=== PATIENT | female | born 1935 | race Caucasian/White ===

== ENCOUNTER 2016-11-11 18:54 | Emergency (ER) | payer MEDICARE ==
--- NOTE | ~2016-11-11 | CR72 ---
[facility] A Service of [facility] RADIOLOGY TEXT RESULTS PATIENT: CARISSA RINCON LOCATION: SED : 36 UNIT #: [id number] AGE: [address]: Arpit Hartman MD SEX: F ORDER DR: [id number] [address] [address] [id number] MR#: [id number] Acc #: [id number] NAME: CARISSA RINCON : 1935 SEX: F STUDY DATE/TIME: 11/11/2016 19:57 UNIT: SED ROOM: STUDY DESCRIPTION: CR Chest Single View Portable Attending Physician: Arpit Hartman M.D. Ordering Physician: Arpit Hartman M.D. Primary Care Physician: Agustin Hauser M.D. MEDICAL IMAGING REPORT This report is preliminary unless electronic signature is present. EXAM Chest, portable, 11/11/2016, 1957 hours. CLINICAL HISTORY 81-year-old woman complaining of chest pain, upper abdominal pain with nausea and shortness of air beginning tonight. History of emphysema. COMPARISON 03/25/2014 FINDINGS Upright portable chest demonstrates moderate cardiomegaly appearing increased from prior study. Aortic contours are stable. There is underlying diffuse emphysematous change with patchy increased densities in the left upper lung and mild diffuse interstitial prominence also likely present on 03/25/2014. No effusions are seen. IMPRESSION 1. Moderate enlargement of the cardiac silhouette appearing slightly increased from 03/25/2014. This could be due to cardiomegaly or pericardial fluid. 2. The patient has emphysematous change with some coarse interstitial and reticular changes similar to 03/25/2014. There is vague patchy density in the left upper lung, which appears to be new and could represent pneumonia, less likely asymmetric edema. No effusions are seen. Dictated by... Petra Corona M.D. THIS IS AN ELECTRONICALLY VERIFIED REPORT Petra Corona M.D. at 11/12/2016 6:41 PM [facility] A Service of [facility] RADIOLOGY TEXT RESULTS PATIENT: CARISSA RINCON LOCATION: SED : 36 UNIT #: [id number] AGE: [address]: Arpit Hartman MD SEX: F ORDER DR: ANIKET/desiree TD: 11/12/2016 10:31 JOB #: [id number] MEDICAL IMAGING REPORT Page 1 of 1
--- NOTE | ~2016-11-11 | EKG ---
PATIENT: CARISSA RINCON UNIT #: [id number] Ventricular Rate: 88 BPM Atrial Rate: 88 BPM P-R Interval: 172 ms QRS Duration: 94 ms Q-T Interval: 352 ms QTC Calculation(Bezet): 425 ms P [place]: 92 degrees Calculated R [place]: 88 degrees Calculated T [place]: 115 degrees Diagnosis Line: Sinus rhythm with occasional Premature ventricular Diagnosis Line: complexes and Premature atrial complexes Diagnosis Line: Biatrial enlargement Diagnosis Line: Low voltage QRS Diagnosis Line: Anterolateral infarct (cited on or before Diagnosis Line: 25-MAR-2014) Diagnosis Line: Abnormal ECG Diagnosis Line: When compared with ECG of 25-MAR-2014 20:00, Diagnosis Line: Premature ventricular complexes are now Present Diagnosis Line: Premature atrial complexes are now Present Diagnosis Line: RSR' pattern in V1 is no longer Present Diagnosis Line: T wave amplitude has decreased in Inferior leads Diagnosis Line: Confirmed by KP MARINO MD ([id number]) on Diagnosis Line: 11/18/2016 9:00:23 AM INTERPRETING MD: JAMILA SAINI
[~2016-11-11 18:54] MED LIST: ATORVASTATIN CA80 MG PO; CEPHALEXIN500 M1 PO; KEFLEX500 M1 PO; LIPITOR80 MG PO; METOPROLOL SUCC25 MG PO; MULTI VITAMIN1 EACH PO; SPIRIVA18 MCG INH; SYMBICORT INH; SYMBICORT80 INH
[2016-11-11] MEDS ORDERED: AMLODIPINE BESYL5 MG (19:08)
[2016-11-11] MEDS ORDERED: ASPIRIN81 M2 (19:08)
[2016-11-11] MEDS ORDERED: KCL (19:08)
[2016-11-11] MEDS ORDERED: LASIX (19:08)
[2016-11-11 19:54] LABS: BASOPHIL# 0.1 X10e3 (0-0.3); BASOPHIL% 0.5 % (0-2.5); EOSINOPHIL% 0.4 % (0.0-7.0); HEMATOCRIT 30.8 % (35.0-45.0); HEMOGLOBIN 10.3 gm/dL (12.0-16.0); LYMPHOCYTE# 0.7 X10e3 (1.0-3.5); LYMPHOCYTE% 7.2 % (17.0-45.0); MEAN CELL VOLUME 86.6 FL (83-96); MEAN CORPUSCULAR HGB CONC 33.5 g/dL (30-36); MEAN PLATELET VOLUME 7.2 FL (6.5-11.5); MONOCYTE# 0.5 X10e3 (0-1.0); MONOCYTE% 5.3 % (3.0-12.0); NEUTROPHIL# 8.2 X10e3 (1.5-7.1); NEUTROPHIL% 86.6 % (40-75); PLATELET COUNT 422 X10e3 (140-420); RED BLOOD COUNT 3.56 X10e (3.90-5.30); RED CELL DISTRIBUTION WIDTH 14.5 % (11.0-15.5); WHITE BLOOD COUNT 9.4 X10e3 (4.0-10.5)
[2016-11-11 19:55] LABS: DIFF IND NO
[2016-11-11 20:17] LABS: ALBUMIN SERUM 2.9 g/dL (3.5-5.0); BILIRUBIN, DIRECT 0.2 mg/dL (0.0-0.2); BILIRUBIN,INDIRECT 0.5 mg/dL (0.0-0.9); BILIRUBIN,TOTAL 0.7 mg/dL (0.2-2.0); CALCIUM SERUM 8.5 mg/dL (8.4-10.2); CREATININE SERUM 0.5 mg/dL (0.6-1.4); GLOM FILT RATE Estimated 91.4 mL/min (>60); POTASSIUM 3.1 mmol/L (3.5-5.1); PROTEIN TOTAL SERUM 7.2 g/dL (6.0-8.3)
[2016-11-11 20:22] LABS: URINE SOURCE CLEAN CATCH
[2016-11-11 20:24] LABS: URINE APPEARANCE CLEAR; URINE BILIRUBIN NEG (NEG); URINE COLOR YELLOW; URINE GLUCOSE NEG (NORM); URINE KETONE NEG (NEG); URINE NITRATE NEG (NEG); URINE PH 7.5 (5-8); URINE PROTEIN TRACE (NEG); URINE SPECIFIC GRAVITY 1.015 (1.003-1.035)
[2016-11-11 20:29] LABS: MICRO INDICATED? YES; URINE BLOOD 1+ (NEG); URINE LEUKOCYTE ESTERASE 2+ (NEG)
[2016-11-11 20:33] LABS: CULTURE INDICATED? YES; URINE BACTERIA NEG (NEG); URINE MUCUS PRESENT; URINE SQUAMOUS EPITHELIAL CELL OCCAS /[HPF]; URINE TRANSITIONAL EPI CELLS OCCAS /[HPF]; URINE WBC 50-100 /[HPF] (0-5)
[2016-11-11 21:57] LABS: POC - CKMB 2.7 ng/mL (0.0-7.9); POC - TROPONIN 0.95 ng/mL (<=0.05)
[2016-11-12 12:06] LABS: POC - CKMB 1.9 ng/mL (0.0-7.9); POC - TROPONIN 0.71 ng/mL (<=0.05)
== END 2016-11-11 22:48 ==
LOC: SED 18:54
PROVIDERS: Emergency Medicine
DX: D64.9 Anemia, unspecified (principal); E87.6 Hypokalemia; N39.0 Urinary tract infection, site not specified; R07.9 Chest pain, unspecified; E78.00 Pure hypercholesterolemia, unspecified; I11.0 Hypertensive heart disease with heart failure; I50.9 Heart failure, unspecified; J44.9 Chronic obstructive pulmonary disease, unspecified; Z79.82 Long term (current) use of aspirin; Z79.899 Other long term (current) drug therapy
CPT/HCPCS: 36415; 71010; 80048; 80076; 81003; 82553; 83690; 83880; 84484; 85025; 87086; 87088; 87186; 93005; 96365; 96375; 99285; J0696; J2405